=== PATIENT | female | born 1985 | race Caucasian/White ===

== ENCOUNTER 2018-08-09 07:26 | Day surgery (SDC) | payer OTHER, MEDICAID ==
[2018-08-09] MEDS ORDERED: Dextrose 5%-Lactated Ringers 1,000 ML IV SCH (07:45)
[2018-08-09] MEDS ORDERED: Glycopyrrolate 0.2 MG/ML 2 ML SDV IVPUSH ONE (07:45)
[2018-08-09] MEDS ORDERED: fentaNYL 100 MCG/2 ML SDV ONE (08:08)
[2018-08-09] MEDS ORDERED: Propofol 200 MG/20 ML SDV ONE (08:08)
[2018-08-09] MEDS ORDERED: Midazolam 1 MG/ML 2 ML SDV ONE (08:08)
--- NOTE | 2018-08-13 13:46 | OR ---
DATE OF PROCEDURE: 08/09/2018 PREOPERATIVE DIAGNOSIS: Epigastric pain and heartburn. POSTOPERATIVE DIAGNOSES: 1. Moderately active gastroesophageal reflux disease associated with small hiatal hernia. 2. Gastric bezoar consistent with gastroparesis. 3. Mild antral gastritis. PROCEDURE PERFORMED: Esophagogastroduodenoscopy with: 1. Biopsy of the esophagogastric junction for histologic evaluation. 2. Biopsies of antrum for CLOtest. ANESTHESIA: IV sedation. INDICATION FOR PROCEDURE: This is a 33-year-old presenting with a globus sensation and some dysphagia referable to the laryngopharyngeal area. She, in the past, has had some episodes of reflux disease during and has, in the past, been on Pepcid 20 mg b.i.d. Plan is to proceed with upper GI endoscopy with biopsies as indicated. Potential risks including bleeding and perforation were discussed, and the patient wishes to proceed. DETAILS OF PROCEDURE: The patient was taken to the operating room and placed in a left lateral decubitus position. IV sedation was administered, after which the upper GI endoscope was passed orally through the length of the esophagus into the stomach with retroflexion view of the fundus, and thereafter, through the pyloric channel into the junction of the third and fourth portions of the duodenum. Findings included some mild redness of the hypopharynx and larynx. Otherwise, there were no anatomical abnormalities. The upper esophageal sphincter and esophageal body were unremarkable. The patient did have some edema, redness, and friability of the distal esophageal mucosa with a small, perhaps 1 to 2 cm, hiatal hernia. There was no stricturing or gross evidence of neoplasia. The more striking finding was that of a fairly large gastric bezoar, this amounting to a large amount of old, undigested, vegetable-type matter predominantly. This was associated with some mild redness in the antrum, and the pyloric channel and visualized portions of the duodenum were unremarkable. At this point, biopsies were obtained from the antrum and sent for CLOtest for H pylori. Multiple biopsies were obtained from the esophagogastric junction and sent for histologic evaluation. Minimal bleeding from the biopsy sites was seen, and the procedure was then concluded. The plan at this point will be to have the patient restart the Pepcid 20 mg a day. She will be seen by Dietary, and she should be initiated on an anti-bezoar diet. I do not think we will start her on any prokinetic agent at this point as both erythromycin and Reglan have significant side effects if there used long-term. Additionally, we will obtain an x-ray, swallow study, and speech pathology consult to see if there is something that is treatable in terms of her globus sensation. If all of these fail in terms of globus sensation, one might consider an ENT consultation. The patient will be set up for internal medicine followup with BEATRIS Wheatley MD, after the swallow study has been completed. If at some point one wishes to ascertain whether or not the bezoar has cleared, a repeat upper endoscopy could be obtained at that time. Phill Licea MD /[id number]
== END 2018-08-09 11:01 | disposition home or self-care (01) ==
LOC: JP.SDS 07:26
PROVIDERS: ATTEND Surgery
DX: K21.9 Gastro-esophageal reflux disease without esophagitis (principal); K29.50 Unspecified chronic gastritis without bleeding; K44.9 Diaphragmatic hernia without obstruction or gangrene; T18.2XXA Foreign body in stomach, initial encounter; I73.00 Raynaud's syndrome without gangrene; F90.9 Attention-deficit hyperactivity disorder, unspecified type; J45.909 Unspecified asthma, uncomplicated; Z87.891 Personal history of nicotine dependence
CPT/HCPCS: 43239; 87081; 88305; J2250; J2704; J3010; J3490; J7042

== ENCOUNTER 2020-07-28 17:03 | Emergency (ER) | payer OTHER ==
--- NOTE | 2020-07-28 17:49 | EDM.PDOC ---
<Alen Morales - Last Filed: 07/28/20 18:34> ED HPI GENERAL MEDICAL PROBLEM - General Chief Complaint: Cardiovascular Problem Stated Complaint: high blood pressure Time Seen by Provider: 07/28/20 17:35 - Related Data Allergies Allergy/AdvReac Type Severity Reaction Status Date / Time nifedipine [From Procardia] Allergy Severe Difficulty Verified 07/28/20 17:21 Breathing ondansetron [From Zofran] Allergy Severe Difficulty Verified 07/28/20 17:21 Breathing pantoprazole Allergy Severe Difficulty Verified 07/28/20 17:21 Breathing adhesive tape Allergy Rash Verified 07/28/20 17:21 Sulfa (Sulfonamide Allergy Rash Verified 07/28/20 17:21 Antibiotics) Home Meds: Home Meds Albuterol Sulfate [Proair Respiclick] 90 mcg IH ASDIRECTED PRN 08/08/18 [History] Cetirizine [ZyrTEC] 10 mg PO DAILY PRN 08/08/18 [History] Dextroamphetamine Sulfate [Dextroamphetamine Sulfate ER] 25 mg PO DAILY 08/08/18 [History] Lisinopril/Hydrochlorothiazide [Lisinopril-Hctz 10-12.5 mg Tab] 1 each PO DAILY 30 Days #30 tablet 07/28/20 [Rx] buPROPion HCL [Wellbutrin Xl] 150 mg PO DAILY 07/28/20 [History] Course - Re-Assessments/Exams Free Text/Narrative Re-Assessment/Exam: 07/28/20 18:34 I reviewed the labs showing a normal CBC, basic metabolic profile, TSH, and urinalysis. Patient is still hypertensive at 171/116. We will start her on lisinopril 10 mg/hydrochlorothiazide 12.5 mg daily. I would like her to follow-up with her primary care provider in 2 weeks for a blood pressure recheck. She should monitor her blood pressure once daily over the next 2 weeks and bring that to her appointment with her. Indications return to the ED were discussed and the patient is suitable for discharge in satisfactory condition. Departure - Departure Time of Disposition: 18:37 Disposition: Home, Self-Care 01 Condition: Good Clinical Impression: Essential hypertension Prescriptions: Lisinopril/Hydrochlorothiazide [Lisinopril-Hctz 10-12.5 mg Tab] 1 each PO DAILY 30 Days #30 tablet Instructions: Hypertension, Adult, [id number] Referrals: PCP,None [Primary Care Provider] - Forms: ED Department Discharge Care Plan Goals: We are starting you on a new antihypertensive medication for your blood pressure called lisinopril/hydrochlorothiazide. You will take 1 tablet daily. I have prescribed 30 days with 1 refill. I had like you to follow-up with your primary care provider in 2 weeks for a blood pressure recheck as the doses may need to be adjusted. Please take your blood pressure once daily for the next 2 weeks and bring a log of what your blood pressures are to your appointment. Should you develop any symptoms like lightheadedness, palpitations, chest pain, blurred vision, numbness or tingling, or weakness please return to the ED for reevaluation. - Problem List & Annotations (1) Essential hypertension SNOMED Code(s): 14759414 Code(s): I10 - ESSENTIAL (PRIMARY) HYPERTENSION Status: Acute Priority: Medium - Problem List Review Problem List Initiated/Reviewed/Updated: Yes <Kirby Gautam - Last Filed: 07/29/20 07:32> ED HPI GENERAL MEDICAL PROBLEM - General Source of Information: Reports: Patient, Family, Provider History Limitations: Reports: No Limitations - History of Present Illness INITIAL COMMENTS - FREE TEXT/NARRATIVE: 35-year-old female went into a local clinic today to donate blood and was found to be hypertensive with a blood pressure of 184/126. It was rechecked and still hypertensive so she was sent to the clinic, it was basically at the same level so they sent her to the emergency room. She is asymptomatic today, however she does complain that over the weekend she had a mild headache, and over the last 2 to 3 weeks when she exercises she seems to get shortness of breath a little sooner than she is used to. She also claims that her feet have been turning colors at times, even her children have commented that her feet turned "purple". No nausea or vomiting, no weight loss, she has had some brief periods of shortness of breath at night but nothing consistent. No headaches, no visual complaints. Onset: Unknown/Unsure Associated Symptoms: Reports: Other (See HPI) Past Medical History HEENT History: Reports: Allergic Rhinitis, Other (See Below) Other HEENT History: TMJ Cardiovascular History: Reports: Hypertension Gastrointestinal History: Reports: Cholelithiasis, GERD, Helicobacter Pylori [employer] History: Reports: Musculoskeletal History: Reports: Fracture Neurological History: Reports: Other (See Below) Other Neuro History: viral meningitis Psychiatric History: Reports: ADHD Dermatologic History: Reports: Eczema - Infectious Disease History Infectious Disease History: Reports: C-Difficile - Past Surgical History HEENT Surgical History: Reports: Oral Surgery Cardiovascular Surgical History: Reports: None GI Surgical History: Reports: Cholecystectomy, EGD Neurological Surgical History: Reports: Other (See Below) Other Neurological Surgeries/Procedures: spinal tap Musculoskeletal Surgical History: Reports: Other (See Below) Other Musculoskeletal Surgeries/Procedures:: left broken foot with multiple surgeries Dermatological Surgical History: Reports: None Social & Family History - Tobacco Use Tobacco Use Status *Q: Never Tobacco User Second Hand Smoke Exposure: No - Caffeine Use Caffeine Use: Reports: Energy Drinks - Recreational Drug Use Recreational Drug Use: No ED ROS GENERAL - Review of Systems Review Of Systems: See Below Constitutional: Denies: Fever, Chills HEENT: Denies: Vision Change Respiratory: Reports: Shortness of Breath (Somewhat more short of breath with activity and exercise, brief episodes at night) Cardiovascular: Reports: Blood Pressure Problem. Denies: Chest Pain, Lightheadedness, Palpitations GI/Abdominal: Reports: No Symptoms : Reports: No Symptoms Skin: Reports: Other (Complains of some intermittent discoloration of the feet. Does have "raynauds" hx) Neurological: Denies: Headache Psychiatric: Reports: No Symptoms ED EXAM, GENERAL - Physical Exam Exam: See Below Exam Limited By: No Limitations General Appearance: Alert, No Apparent Distress Eye Exam: Bilateral Eye: Normal Inspection Head: Atraumatic Neck: Supple, Non-Tender. No: Lymphadenopathy (R), Lymphadenopathy (L) Respiratory/Chest: No Respiratory Distress, Lungs Clear Cardiovascular: Regular Rate, Rhythm, No Murmur GI/Abdominal: Non-Tender Back Exam: Paraspinal Tenderness Extremities: No: Pedal Edema Neurological: Alert, Oriented, No Motor/Sensory Deficits Psychiatric: Normal Affect, Normal Mood Skin Exam: Warm, Dry Course - Vital Signs Last Recorded V/S: Last Vital Signs Temp 97.7 F 07/28/20 17:19 Pulse 80 07/28/20 18:56 Resp 18 07/28/20 18:56 BP 166/124 H 05/19/21 18:56 Pulse Ox 99 07/28/20 17:41 - Orders/Labs/Meds Labs: Laboratory Tests 07/28/20 07/28/20 07/28/20 Range/Units 17:47 17:56 17:56 WBC 7.0 (4.5-11.0) K/uL RBC 4.56 (3.30-5.50) M/uL Hgb 13.7 (12.0-15.0) g/dL Hct 41.8 (36.0-48.0) % MCV 92 (80-98) fL MCH 30 (27-31) pg MCHC 33 (32-36) % Plt Count 258 (150-400) K/uL Neut % (Auto) 76.3 H (36-66) % Lymph % (Auto) 14.1 L (24-44) % [place] % (Auto) 7.6 H (2-6) % Eos % (Auto) 1.3 L (2-4) % Baso % (Auto) 0.7 (0-1) % Sodium 142 (140-148) mmol/L Potassium 4.0 (3.6-5.2) mmol/L Chloride 103 (100-108) mmol/L Carbon Dioxide 29 (21-32) mmol/L Anion Gap 9.8 (5.0-14.0) mmol/L BUN 12 (7-18) mg/dL Creatinine 0.7 (0.6-1.0) mg/dL Est Cr Clr Drug Dosing 99.98 mL/min Estimated GFR (MDRD) > 60 (>60) Glucose 95 (74-106) mg/dL Calcium 8.5 (8.5-10.1) mg/dL TSH, Ultra Sensitive 1.072 (0.358-3.740) uIU/mL Urine Color Yellow (YELLOW) Urine Appearance Slightly cloudy A (CLEAR) Urine pH 6.5 (5.0-8.0) Ur Specific [place] 1.015 (1.008-1.030) Urine Protein Negative (NEGATIVE) mg/dL Urine Glucose (UA) Negative (NEGATIVE) mg/dL Urine Ketones Negative (NEGATIVE) mg/dL Urine Occult Blood Trace-intact H (NEGATIVE) Urine Nitrite Negative (NEGATIVE) Urine Bilirubin Negative (NEGATIVE) Urine Urobilinogen 0.2 (0.2-1.0) EU/dL Ur Leukocyte Esterase Negative (NEGATIVE) Urine RBC 0-5 (0-5) Urine WBC 0-5 (0-5) Ur Epithelial Cells Few Amorphous Sediment Rare Urine Bacteria Moderate Urine Mucus Rare - Re-Assessments/Exams Free Text/Narrative Re-Assessment/Exam: 07/28/20 18:12 UA was obtained, CBC, BMP and TSH. Sepsis Event Note (ED) - Evaluation Sepsis Screening Result: No Definite Risk
== END 2020-07-28 19:00 | disposition home or self-care (01) ==
LOC: JP.ED 17:03
DX: I10 Essential (primary) hypertension (principal); Z88.8 Allergy status to other drugs, medicaments and biological substances; Z88.2 Allergy status to sulfonamides; Z91.048 Other nonmedicinal substance allergy status; Z79.899 Other long term (current) drug therapy
CPT/HCPCS: 36415; 80048; 81001; 84443; 85025; 99283

== ENCOUNTER 2021-09-18 10:57 | Emergency (ER) | payer OTHER, MEDICAID ==
[2021-09-18] MEDS ORDERED: Bacitracin Oint 1 GM U/D Packet TOP ONE (11:24)
[2021-09-18] MEDS ORDERED: Lidocaine 1% 5 ML VIAL INJECT ONE (11:24)
[2021-09-18] MEDS ORDERED: Diphtheria/Tetanus Toxoids,Adult (Td) 0.5 ML SDV IM ONE (12:04)
== END 2021-09-18 12:44 | disposition home or self-care (01) ==
LOC: JP.ED 10:57
DX: S61.012A Laceration without foreign body of left thumb without damage to nail, initial encounter (principal); I10 Essential (primary) hypertension; K21.9 Gastro-esophageal reflux disease without esophagitis; Z88.2 Allergy status to sulfonamides; Z91.048 Other nonmedicinal substance allergy status; Z79.899 Other long term (current) drug therapy; Z23 Encounter for immunization; W26.8XXA Contact with other sharp object(s), not elsewhere classified, initial encounter
CPT/HCPCS: 12001; 90471; 90714; 99282-25